=== PATIENT | female | born 1950 | race Caucasian/White ===

== ENCOUNTER → 2018-01-17 10:18 | Outpatient (CLI) | payer OTHER, SELFPAY ==
--- NOTE | 2018-01-17 08:32 | CT_ITS ---
STUDY: CT CHEST/THORAX WITHOUT CONTRAST REASON FOR EXAM: Female, 67 years old. Lung nodule. RADIATION DOSAGE (If Supplied By Facility): CTDIvol = ( 20.15 ) mGy, DLP = ( 719.97 ) mGycm TECHNIQUE: Transaxial imaging was performed without the administration of intravenous contrast material. Multiplanar coronal and sagittal images were reformatted. Individualized dose optimization techniques were used for this CT. COMPARISON: None. FINDINGS: 2 mm nodule seen in the anterior periphery of the upper right middle lobe on series 4 image 53, series 6 and image 104. 3.5 mm calcified granuloma is noted in the inferolateral anterior right lower lobe on series 4 image 78, series 602 image 159. There is minor subsegmental scarring or atelectasis in the inferolateral right costophrenic sulcus just anterior and peripheral granuloma. 1-2 mm possibly calcified nodule seen in the anterior periphery of the left upper lobe on series 4 image 40, series 6 and image 109. Mildly coarsened interstitial densities are seen in the inferolateral periphery of the anterior left lower lobe, consistent with scarring. There is no demonstrated pleural abnormality. Normal heart. There is localized thickening or effusion in the anterior pericardium, measuring up to 7 mm thickness. Pericardium. There are calcifications of the coronary arteries. There is a benign-appearing 1.4 x 0.9 x 0.45 cm lymph node anterior to the right mainstem bronchus and, just above this, a 1.25 x 0.6 x 0.7 cm node with a fatty hilus. There is a 1.45 x 0.5 x 0.5 cm node below the left mainstem bronchus. Nodes with coarse calcifications are seen in the right subcarinal and right hilar tissues. There are other nonspecific subcentimeter mediastinal and hilar nodes Normal hilar regions. Normal unenhanced pulmonary arteries. There is mild atherosclerotic tortuosity of the aortic arch. Normal osseous structures. There is a nonspecific 1.9 x 0.75 x 0.75 cm medial left supraclavicular lymph node on series 2 image 9, series 6 and image 162. There is decreased attenuation of the hepatic parenchyma, consistent with fatty infiltration. A few small calcified granulomata are noted in the spleen. CT/Chest without Contrast IMPRESSION: 1. Findings of old calcified granulomatous disease. 2. Two additional 2 mm anterior lung nodules are evident. No specific radiographic follow-up is needed. 3. Atherosclerotic calcifications of the coronary arteries and thoracic aortic arch. 4. Localized anterior pericardial thickening/effusion. 5. Fatty infiltration of the liver. Electronically Signed: Ángel Luna MD at 11:24 EDT , Service support ,
== END ==
PROVIDERS: Family Provider Internal Medicine; PCP Internal Medicine; Visit Provider Internal Medicine
DX: J84.10 Pulmonary fibrosis, unspecified (principal); R91.8 Other nonspecific abnormal finding of lung field; I70.0 Atherosclerosis of aorta; I25.10 Atherosclerotic heart disease of native coronary artery without angina pectoris; K76.0 Fatty (change of) liver, not elsewhere classified
CPT/HCPCS: 71250

== ENCOUNTER → 2020-03-15 11:17 | Outpatient (CLI) | payer OTHER, SELFPAY ==
[2020-03-15 11:17] VITALS: BMI 49.6
[2020-03-15 15:44] LABS: T3 Total - Triiodothyronine 0.92 ng/mL (0.6-1.81)
[2020-03-15 15:58] LABS: T4 Free Direct 1.12 ng/dL (0.76-1.46); Thyroid Stim Hormone (TSH) 1.88 uIU/mL (0.358-3.74)
[2020-03-17 21:15] LABS: Thyroid Peroxidase AB < 9 IU/mL (0-34)
== END ==
PROVIDERS: PCP Internal Medicine; Referring Provider Dermatology Pediatric Dermatology; Visit Provider Dermatology Pediatric Dermatology
DX: L80 Vitiligo (principal)
CPT/HCPCS: 36415; 84439; 84443; 84480; 86376